=== PATIENT | female | born 1965 | race Two or more races ===

== ENCOUNTER 2025-04-21 09:45 | Inpatient (IN) | payer OTHER ==
[~2025-04-21] VITALS: Ht 170.2 cm; Wt 83.0 kg
[2025-04-27] MEDS ORDERED: CHLORHEXIDINE GLUCONATE 120 ML BOTTLE TOP ONE (11:30)
[2025-04-27] MEDS ORDERED: CEFTRIAXONE SODIUM 2,000 MG VIAL IV ONE (11:30)
[2025-04-27] MEDS ORDERED: LIDOCAINE HCL 1%/EPINEPHRINE 20ML VIAL IJ ONE (11:30)
[2025-04-27] MEDS ORDERED: BUPIVACAINE HCL 30 ML VIAL IJ ONE (11:30)
[2025-04-27] MEDS ORDERED: METRONIDAZOLE/SODIUM CHLORIDE 500 MG/100 ML PIGGYBACK IV ONE (11:30)
[2025-04-27] MEDS ORDERED: MORPHINE SULFATE 4 MG/ML CARTRIDGE IV PRN (12:00)
[2025-04-27] MEDS ORDERED: OxyCODONE HCL 5 MG TABLET (ROXICODONE) PO PRN (12:00)
[2025-04-27] MEDS ORDERED: ONDANSETRON HCL 2 MG/ML VIAL IV PRN (12:00)
[2025-04-27] MEDS ORDERED: RINGERS SOLUTION,LACTATED 1,000 ML IV SCH (12:00)
[2025-04-27] MEDS ORDERED: MORPHINE SULFATE 4 MG/ML VIAL IV ONE ×3 (12:35→15:00)
[2025-04-27] MEDS ORDERED: HYOSCYAMINE SULFATE 0.125 MG TAB.SUBL SL SCH (13:00)
[2025-04-27] MEDS ORDERED: SIMETHICONE 125 MG CAPSULE PO SCH (13:00)
[2025-04-27 13:47] LABS: BASO % 0.5 % (0.1-1.2); EOS # 0.06 (0.04-0.54); EOS % 2.7 % (0.7-7.0); LYMPH # 0.34 (1.18-3.74); LYMPH % 15.5 % (19.3-53.1); MEAN CORPUSCULAR HEMOGLOBIN 28.8 pg (25.6-32.2); MONO # 0.12 (0.24-0.82); MONO % 5.5 % (4.7-12.5); NEUT # 1.66 (1.56-6.13); NEUT % 75.3 % (34.0-71.1); RED BLOOD COUNT 2.64 M/uL (3.93-5.22); RED CELL DISTRIBUTION WIDTH 12.3 % (11.6-14.4)
[2025-04-27] MEDS ORDERED: ACETAMINOPHEN 500 MG GEL..CAP PO SCH (14:00)
[2025-04-27 14:38] LABS: HEMATOCRIT 24.2 % (34.1-44.9)
[2025-04-27 14:39] LABS: HEMOGLOBIN 7.6 g/dL (11.2-15.7)
[2025-04-27 14:40] LABS: PLATELET COUNT 105 K/uL (163-369)
[2025-04-27] MEDS ORDERED: GABAPENTIN 300 MG CAPSULE PO ONE (15:57)
[2025-04-27] MEDS ORDERED: METOCLOPRAMIDE HCL 5 MG/ML VIAL ONE (15:57)
[2025-04-27] MEDS ORDERED: HYOSCYAMINE SULFATE 0.125 MG TAB.SUBL ONE (15:57)
[2025-04-27] MEDS ORDERED: CELECOXIB 200 MG CAPSULE PO ONE (15:57)
[2025-04-27] MEDS ORDERED: SIMETHICONE 125 MG CAPSULE PO ONE (15:57)
[2025-04-27] MEDS ORDERED: CELECOXIB 200 MG CAPSULE PO SCH (17:00)
[2025-04-27] MEDS ORDERED: GABAPENTIN 300 MG CAPSULE PO SCH (17:00)
[2025-04-27] MEDS ORDERED: POLYETHYLENE GLYCOL 3350 17 GM BLIST.PACK PO SCH (17:00)
[2025-04-27] MEDS ORDERED: METOCLOPRAMIDE HCL 5 MG/ML VIAL IV SCH (17:00)
[2025-04-27 17:16] VITALS: BP 117/70; O2SAT 97
[2025-04-27 17:25] LABS: BASO % 0.3 % (0.1-1.2); EOS # 0.02 (0.04-0.54); EOS % 0.2 % (0.7-7.0); HEMOGLOBIN 12.3 g/dL (11.2-15.7); LYMPH # 0.35 (1.18-3.74); MEAN CORPUSCULAR HEMOGLOBIN 29.3 pg (25.6-32.2); MONO # 0.26 (0.24-0.82); NEUT # 7.97 (1.56-6.13); NEUT % 92.2 % (34.0-71.1); PLATELET COUNT 191 K/uL (163-369); RED CELL DISTRIBUTION WIDTH 12.4 % (11.6-14.4)
[2025-04-27] MEDS ORDERED: FAMOTIDINE/PF 20 MG/2 ML VIAL IV PUSH SCH (21:00)
[2025-04-28 00:17] VITALS: BP 114/72; O2SAT 98
[2025-04-28 06:15] LABS: BASO % 0.3 % (0.1-1.2); EOS # 0.08 (0.04-0.54); EOS % 1.3 % (0.7-7.0); HEMATOCRIT 32.9 % (34.1-44.9); HEMOGLOBIN 10.6 g/dL (11.2-15.7); LYMPH # 0.62 (1.18-3.74); LYMPH % 9.9 % (19.3-53.1); MEAN CORPUSCULAR HEMOGLOBIN 28.5 pg (25.6-32.2); MONO # 0.46 (0.24-0.82); MONO % 7.4 % (4.7-12.5); NEUT # 5.05 (1.56-6.13); NEUT % 80.9 % (34.0-71.1); PLATELET COUNT 182 K/uL (163-369); RED BLOOD COUNT 3.72 M/uL (3.93-5.22); RED CELL DISTRIBUTION WIDTH 12.3 % (11.6-14.4)
[2025-04-28 06:58] LABS: ALBUMIN 2.7 gm/dL (3.4-5.0); CALCIUM 8.5 mg/dL (8.5-10.1); CREATININE SERUM 0.53 mg/dL (0.55-1.02); GFR 118.07; MAGNESIUM 1.8 mg/dL (1.8-2.4); PHOSPHOROUS 2.7 mg/dL (2.5-4.9); POTASSIUM 3.86 mEq/L (3.5-5.1)
[2025-04-28] MEDS ORDERED: LACTOBACILLUS ACIDOPHILUS 1 CAP CAP PO SCH (09:00)
[2025-04-28] MEDS ORDERED: LACTULOSE 20 G/30 ML BLIST.PACK PO SCH (09:00)
[2025-04-28] MEDS ORDERED: Cyanocobalamin/Mecobalamin 1 TAB.SL SL SCH (09:13)
[2025-04-28 14:37] VITALS: BP 114/71; O2SAT 97
[2025-04-28 16:43] VITALS: BP 138/74; O2SAT 97
[2025-04-28] MEDS ORDERED: ENOXAPARIN SODIUM 40 MG/0.4 ML SYRINGE SUBCUTANEO SCH (17:00)
[2025-04-29 00:37] VITALS: BP 116/37; O2SAT 97
[2025-04-29 06:54] LABS: BASO % 0.5 % (0.1-1.2); EOS % 2.3 % (0.7-7.0); HEMATOCRIT 34.2 % (34.1-44.9); HEMOGLOBIN 10.8 g/dL (11.2-15.7); LYMPH # 0.56 (1.18-3.74); LYMPH % 12.6 % (19.3-53.1); MEAN CORPUSCULAR HEMOGLOBIN 28.5 pg (25.6-32.2); MONO % 6.8 % (4.7-12.5); NEUT # 3.45 (1.56-6.13); NEUT % 77.6 % (34.0-71.1); PLATELET COUNT 192 K/uL (163-369); RED BLOOD COUNT 3.79 M/uL (3.93-5.22); RED CELL DISTRIBUTION WIDTH 12.5 % (11.6-14.4)
[2025-04-29 07:26] LABS: CALCIUM 8.8 mg/dL (8.5-10.1); CREATININE SERUM 0.64 mg/dL (0.55-1.02); GFR 94.98; MAGNESIUM 1.9 mg/dL (1.8-2.4); POTASSIUM 3.87 mEq/L (3.5-5.1)
[2025-04-29 08:04] VITALS: BP 149/73; O2SAT 100
[2025-04-29] MEDS ORDERED: ENOXAPARIN SODIUM 40 MG/0.4 ML SYRINGE SUBCUTANEO SCH (09:00)
== END 2025-04-30 07:45 | disposition home or self-care (01) | DRG 331 ==
LOC: O/R 04-27 09:34 → SURH 04-27 09:45 → SURG 04-27 15:29
PROVIDERS: Internal Medicine Geriatric Medicine; ADMIT Colon & Rectal Surgery; ATTEND Colon & Rectal Surgery
PROC: 0DBB4ZZ Excision of Ileum, Percutaneous Endoscopic Approach (ICD-10-PCS; principal; 2025-04-27 12:00)
DX: C20 Malignant neoplasm of rectum (principal); E78.5 Hyperlipidemia, unspecified